=== PATIENT | female | born 1975 | race African-American/Black ===

== ENCOUNTER 2016-08-24 19:36 | Emergency (ER) | payer OTHER ==
[~2016-08-24] VITALS: Ht 165.1 cm; Wt 93.0 kg
[2016-08-24 19:40] VITALS: BP 228/112
[2016-08-24] MEDS ORDERED: HYDROCODONE/APAP 5/325MG TABLET. PO ONE (20:30)
[2016-08-24] MEDS ORDERED: CYCLOBENZAPRINE 10 MG TABLET. PO ONE (20:30)
[2016-08-24] MEDS ORDERED: PREDNISONE 20 MG TABLET PO ONE (20:30)
[2016-08-24] MEDS ORDERED: METH4TAB2 PO (21:32)
[2016-08-24] MEDS ORDERED: CYCL10TA2 PO (21:32)
[2016-08-24] MEDS ORDERED: HYDR-971 PO (21:32)
--- NOTE | 2016-08-24 21:32 | PHYS DOC ---
Past Medical History Past Medical History: Hypertension Past Surgical History: Hysterectomy, Other Additional Past Surgical Histo: left knee Alcohol Use: Occasionally Drug Use: None Adult General Chief Complaint Chief Complaint: SHOULDER INJURY HPI HPI Patient is a 41 year old female who presents with right shoulder pain moderate in nature that began this morning, patient states the pain is worse when she is moving her right upper extremity especially raising it up. 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 Patient states she has been taking Aleve as well as over- the-counter pain medicines with no relief. She currently states she cannot raise her right shoulder above 45. Review of Systems Review of Systems Constitutional: Denies fever or chills [] Eyes: Denies change in visual acuity, redness, or eye pain [] Musculoskeletal: Right shoulder pain Integument: Denies rash or skin lesions [] Neurologic: Denies headache, focal weakness or sensory changes [] Endocrine: Denies polyuria or polydipsia [] Current Medications Current Medications Current Medications Medications (Trade) Dose Ordered Sig/Beth Start Time Stop Time Status Last Admin Dose Admin Acetaminophen/ Hydrocodone Bitart (Lortab 5/325) 2 tab 1X ONCE 08/24/16 20:30 08/24/16 20:31 DC 08/24/16 20:33 2 TAB Cyclobenzaprine HCl (Flexeril) 10 mg 1X ONCE 08/24/16 20:30 08/24/16 20:31 DC 08/24/16 20:34 10 MG Prednisone (Prednisone) 60 mg 1X ONCE 08/24/16 20:30 08/24/16 20:31 DC 08/24/16 20:33 60 MG Allergies Allergies Allergies Coded Allergies Type Severity Reaction Last Updated Verified No Known Drug Allergies 08/24/16 No Physical Exam Physical Exam Constitutional: Well developed, well nourished, no acute distress, non-toxic appearance. [] HENT: Normocephalic, atraumatic, bilateral external ears normal, oropharynx moist, no oral exudates, nose normal. [] Skin: Warm, dry, no erythema, no rash. [] Back: No tenderness, no CVA tenderness. [] Extremities: Right shoulder with no obvious deformity. Diffuse tenderness on palpation of the right shoulder ACM joint. Limited range of motion to the right shoulder especially raising it above 50. Limited abduction of the right shoulder, adequate adduction of the right shoulder. +2 right radial pulse. Adequate medial radial and ulnar sensation to the right upper extremity. Cap refill less than 2 seconds the right upper extremity. Neurologic: Alert and oriented X 3, normal motor function, normal sensory function, no focal deficits noted. [] Psychologic: Affect normal, judgement normal, mood normal. [] Current Patient Data Vital Signs Vital Signs Date Time Temp Pulse Resp B/P Pulse Ox O2 Delivery O2 Flow Rate FiO2 08/24/16 19:40 98.1 71 18 228/112 100 Room Air 98.1 EKG EKG [] Radiology/Procedures Radiology/Procedures [] Course & Med Decision Making Course & Med Decision Making Pertinent Labs and Imaging studies reviewed. 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 Patient was provided a sling in the ED. Discharged with some muscle relaxers Medrol Dosepak and 8 tablets of [place]. Instructed to continue taking Aleve and follow-up with orthopedic doctor provided in a week. Dragon Disclaimer Dragon Disclaimer This electronic medical record was generated, in whole or in part, using a voice recognition dictation system. Departure Departure Impression: Primary Impression: Right shoulder tendinitis Disposition: 01 HOME, SELF-CARE Condition: STABLE Referrals: UNKNOWN PCP NAME (PCP) KHARI FISHER MD follow up in one week Patient Instructions: Biceps Tendon Tendinitis (Distal) with [facility] Additional Instructions: You were seen for tendinitis of the right shoulder. Please ice and elevate the extremity. Take the prescribed medicines as ordered. Follow-up with your doctor or the provided doctor in a week if pain continues. Scripts Hydrocodone/Apap 5-325 (H[place]st 5-325 Tablet)1 Each Tablet1 Tab PO Q6HRS #8 TAB Prov:MUTUNGA,VENANCIO [employer] OPERATOR 08/24/16 Cyclobenzaprine Hcl 10 Mg Tablet1 Tab PO TID #30 TAB Prov:MUTUNGA,VENANCIO [employer] OPERATOR 08/24/16 Methylprednisolone (Medrol)4 Mg Tab.ds.pk1 Pkg PO UD #1 PKG Prov:MUTUNGA,VENANCIO [employer] OPERATOR 08/24/16 MUTUNGA,VENANCIO [employer]LECT[employer] OPERATOR Aug 24, 2016 21:32
== END 2016-08-24 21:37 | disposition home or self-care (01) ==
LOC: ER 19:36
DX: M75.21 Bicipital tendinitis, right shoulder (principal); I10 Essential (primary) hypertension; Z90.710 Acquired absence of both cervix and uterus
CPT/HCPCS: 99284; J7512